=== PATIENT | male | born 1955 | race Caucasian/White ===

== ENCOUNTER 2020-12-01 01:31 | Inpatient (IN) | payer OTHER ==
[~2020-12-01] VITALS: Ht 180.3 cm; Wt 97.0 kg
[2020-12-01 02:08] LABS: BASOPHILS ABSOLUTE AUTO 0.08 K/mm3 (0.00-0.23); BASOPHILS PERCENT AUTO 1 % (0-2); EOSINOPHILS ABSOLUTE AUTO 0.83 K/mm3 (0.00-0.68); EOSINOPHILS PERCENT AUTO 8 % (0-6); Hemoglobin 12.8 g/dL (13.5-17.5); IMMATURE GRAN PERCENT AUTO 1 % (0-1); LYMPHOCYTES ABSOLUTE AUTO 2.17 K/mm3 (0.84-5.20); LYMPHOCYTES PERCENT AUTO 21 % (21-46); MONOCYTES ABSOLUTE AUTO 1.15 K/mm3 (0.16-1.47); MONOCYTES PERCENT AUTO 11 % (4-13); Mean Corpuscular HGB 27.6 pg (26.0-34.0); Mean Corpuscular Volume 86 fL (80-100); Mean Platelet Volume 8.9 fL (9.1-12.4); NEUTROPHILS ABSOLUTE AUTO 5.96 K/mm3 (1.96-9.15); NEUTROPHILS PERCENT AUTO 58 % (41-73); Platelet Count 357 K/mm3 (150-400); RDW Coefficient Variation 13.9 % (11.7-14.2); RDW Standard Deviation 43.9 fL (35.1-46.3); Red Blood Cell Count 4.63 M/mm3 (4.30-5.90); White Blood Cell Count 10.29 K/mm3 (4.00-11.30)
[2020-12-01 02:29] LABS: Alanine Aminotransfer (ALT/SGP 22 U/L (12-78); Albumin/Globulin Ratio 0.7 (0.8-1.8); Alk Phos 127 U/L (50-136); Anion Gap 5 mmol/L (6-16); Aspartate Aminotrans (AST/SGOT 15 U/L (12-37); Bilirubin, Total 0.3 mg/dL (0.1-1.0); Blood Urea Nitrogen 19 mg/dL (8-24); Bun/Creatinine Ratio 19.2 (12.0-20.0); CO2, Blood 29 mmol/L (21-32); Calcium, Blood 8.6 mg/dL (8.5-10.1); Chloride, Blood 108 mmol/L (98-108); Creatinine, Blood 0.99 mg/dL (0.60-1.20); Globulin, Blood 4.6 g/dL (2.2-4.0); Glomerular Filtration Rate >60 (60-); Glucose, Blood 103 mg/dL (70-99); Sodium, Blood 142 mmol/L (136-145); Total Protein, Blood 7.6 g/dL (6.4-8.2); Troponin I <0.015 ng/mL (0.000-0.040)
--- NOTE | 2020-12-01 05:48 | NUR ---
ADMIT / SHIFT SUMMARY PT TO UNIT FROM ED. AXO. ON RA. IN SR. WALKED INTO BED. VSS. C/O R LUNG PAIN BUT FENTANYL HELPING WITH PAIN THAT WAS ADMINISTERED IN ER. PT PLACED ON 2LNC WHILE ASLEEP, SPO2 >94% NOW. ADMISSION COMPLETED EXCEPT MED REC. WILL CONTINUE TO MONITOR UNTIL SHIFT CHANGE.
--- NOTE | 2020-12-01 08:02 | NUR ---
ASSUMED CARE REPORT FROM EAMON MUÑOZ. PT RESTING IN BED. WAKES c VERBAL STIMULI. A&OX 4. ANSWERS QUESTIONS APPROPRIATELY. FOLLOWS COMMANDS. PT C/O RIGHT CHEST WALL PAIN. STATES PAIN 8/10. MEDICATED c TYLENOL. PT TAKES SHALLOW BREATHS D/T PAIN. ON 2L VIA NC, O2 SATS >97% WHEN AWAKE, >90% WHEN SLEEPING. LUNGS CLEAR. PT P/W/D. MAEW. ABLE TO SHIFT AND REPOSITION SELF IN BED. IVF INFUSING AT 100 ML/HR. ABLE TO MAKE NEEDS KNOWN. CALL LIGHT IN REACH. WILL CONTINUE TO MONITOR.
[2020-12-01] MEDS ORDERED: ACET500 PO (08:28)
[2020-12-01] MEDS ORDERED: Aspir 8181 MG PO (08:28)
[2020-12-01] MEDS ORDERED: ATOR40TA PO (08:28)
[2020-12-01] MEDS ORDERED: METO25ER PO (08:29)
[2020-12-01] MEDS ORDERED: TAMS.4ER PO (08:29)
--- NOTE | 2020-12-01 10:19 | NUR ---
REPORT CALLED TO TEJAS MUÑOZ. PT TRANSFERRED TO SURGICAL FLOOR. ALL BELONGINGS c PT.
--- NOTE | 2020-12-01 10:29 | NUR ---
PT ARRIVED TO UNIT FROM ICU AT APROX 1020.
[2020-12-01 11:53] LABS: International Normalized Ratio 0.93
--- NOTE | 2020-12-01 17:56 | NUR ---
SHIFT SUMMARY PT WAS ICU TX THIS SHIFT. UPON ARRIVAL TO UNIT PT WAS PAINFUL, MEDICATED WITH PO AND IVP MEDICATION WITH NO RELIEF. DR BACON IN TO SEE PT, ORDER FOR DILAUDID PARTS ORDER AND STOCK CLERK. PT IS MUCH MORE COMFORTABLE AND REPORTS PAIN 3/10 SINCE INITIATION OF PARTS ORDER AND STOCK CLERK. LUNG SOUNDS DIMINISHED ON R SIDE WITH SOME AUDIBLE WHEEZING, DENIES SOB. O2 SAT DROPPED TO 84% WHILE SLEEPING, O2 VIA NC APPLIED, O2 SAT NOW GREATER THAN 92%. DR JAY IN FOR CONSULT, PLAN TO CONTINUE IV ABX AT THIS TIME AND FOR CT GUIDED LUNG BX.
--- NOTE | 2020-12-02 04:17 | NUR ---
SHIFT SUMMARY: PT A&O X4. PLEASANT AND COOPERATIVE THROUGHOUT SHIFT. PAIN WELL MANAGED WITH DILAUDID LINK AND LINK KNITTING MACHINE OPERATOR. CONTINUOUS RATE REMAINS AT 0.2MG/HR. O2 94-96% ON 3L VIA NC. PT DENIES SOB. PULSE OXIMETER IN PLACE. DRY, NON PRODUCTIVE COUGH NOTED. RLL DIMINISHED, RUL WITH EXPIRATORY STRIDOR. LUNG SOUNDS ON LEFT SIDE CLEAR. ORAL CONTRAST STARTED AT [address] GUIDED BIOPSY THIS MORNING AT 0600.
--- NOTE | 2020-12-02 06:00 | NUR ---
PT TAKEN TO CT SCAN AT THIS TIME
--- NOTE | 2020-12-02 11:06 | NUR ---
PATIENTS OXYGEN SATURATION AT 89 % ON 1.5L VIA NASAL CANULA, TITRATED PATIENTS OXYGEN UP TO 3 LITERS AND SATURATION IS NOW 93%.
--- NOTE | 2020-12-02 18:52 | NUR ---
SHIFT SUMMARY PATIENT ALERT AND ORIENTED X4. PATIENT WENT FOR PROCEDURE TODAY THAT WAS UNSUCCESSFUL DUE TO PATIENT NOT BEING ABLE TO LAY FLAT FOR A LONG ENOUGH PERIOD OF TIME. PATIENT REPORTS PAIN HAS BEEN TOLERABLE THROUGHOUT THE SHIFT WHILE ON THE CLUB STEWARD. PATIENT REPORTS NO NAUSEA AT THIS TIME. PATIENT AMBULATING WITH TO THE RESTROOM. PATIENT PLESANT AND COOPERATIVE. PATIENT RESTING IN BED WATCHING TELEVISION AT THS TIME. PATIENT ON 3L VIA NASAL CANULA STAT READING 95-97%.
--- NOTE | 2020-12-03 00:36 | NUR ---
PT IS AGREEABLE TO STUDENT PARTICIPATION IN CARE
--- NOTE | 2020-12-03 04:07 | NUR ---
SHIFT SUMMARY: PT CALM COOPERATIVE/WITH SHALLOW BREATHING, LUNG SOUNDS DIMINISHED ON THE RIGHT REPORTS PAIN 8/10W WITH EXECERTION POX 90S,VS WNL, ON 3L O2 VIA NC,ABX Q8HR, IV FLUIDS TKO FOR DILAUDID INVESTIGATOR INTERNAL REVENUE, STANDBY ASSIST TO BATHROOM, NO ACUTE RESPIRATORY CHANGES T/O THE NIGHT RESTED INTERMITTENTLY WITHOUT ACUTE DISTRESS
--- NOTE | 2020-12-03 18:22 | NUR ---
SHIFT SUMMARY NO ACUTE CHANGES THIS SHIFT. PT IS AWAITING BIOPSY PERFORMED UNDER ANESTHESIA. UNABLE TO HAVE PROCEDURE UNTIL SUNDAY AT 1300. CONTINUOUS PCU PUMP IN PLACE AND PAIN IS CONTROLLED WELL. PT CURRENTLY ON ROOM AIR. HE HAS BEEN RESTING COMFORTABLY FOR THE MAJORITY OF THE SHIFT, VSS.
--- NOTE | 2020-12-04 08:02 | NUR ---
SHIFT SUMMARY: NO SIGNIFICANT CHANGES THIS SHIFT. PAIN BEING MANAGED WITH DILAUDID HARDSCAPE FOREMAN. O2 STABLE ON 3LO2 VIA NC. PT REPORTS OCC SOB. PT OUT OF BED TO AMBULATE HALLWAY WITH SBA. TOLERATED ACTIVITY WELL ON RA. LUNGS CLEAR AND DIMINISHED THROUGHOUT. NSR PER TELE. VOIDING WELL AND TOLERATING PO. AWAITING LUNG BIOPSY ON SUNDAY UNDER ANESTHESIA.
--- NOTE | 2020-12-04 18:16 | NUR ---
SUMMARY NO ACUTE CHANGES T/O SHIFT. PT SLEPT OFF AND ON T/O DAY. FLAT AFFECT. ADMINISTERED MEDS PER ORDERS. PT TOOK 02 OFF THIS AM AND SATS DROPPED TO 80S, HAD PT PLACED 02 BACK ON AND SATS RETURNED TO 90S. CALL LIGHT IN REACH.
--- NOTE | 2020-12-05 13:48 | NUR ---
AGITATED PT AGITATED,PULLING AT LINES. DIAPHORETIC. STATED HAVING ANXIETY. WHEN ASKED IF TAKES ANYTHING FOR ANXIETY, STATED NO. DENIED ETOH HX. WANTED TO TAKE SHOWER. PROVIDED SHOWERING SUPPLIES. PT IN RESTROOM NOW.
--- NOTE | 2020-12-05 14:45 | NUR ---
PT FEELS BETTER AFTER SHOWER AND APPEARS MORE CALM.
--- NOTE | 2020-12-05 15:58 | NUR ---
PT FEELING ANXIOUS. ASKED FOR ANXIETY MEDS. SITTING IN CHAIR IN ROOM, ROCKING BACK AND FORTH, RESTLESS. SPOKE TO DR FUENTES. AWAITING ORDERS.
--- NOTE | 2020-12-05 16:24 | NUR ---
PT ANXIOUS ABOUT PROGNOSIS. STATED FEAR OF "LOSING A LUNG", ASKING "IS THIS A SENTENCE?". DISCUSSED W/PT TRYING TO TAKE THINGS ONE STEP AT A TIME AND SEE WHAT BX RESULTS ARE TO MAKE A PLAN W/ MEDICATED PT PER ORDERS FOR ANXIETY. PT NOW RESTING IN BED. PT DECLINED OFFER TO SPEAK W/RUBBER MOLD MAKER. CALL LIGHT AND CAPACITY ANALYST IN REACH.
--- NOTE | 2020-12-05 18:13 | NUR ---
SUMMARY PT HAD INCREASED PAIN THIS SHIFT. ORDERS OBTAINED TO INCREASE LOCKOUT TO EVERY 20 MINUTES AND ADD'L DOSE OF 1 MG DILAUDID GIVEN PER ORDERS. PT BECAME VERY ANXIOUS THIS AFTERNOON CONCERNING PROGNOSIS. MEDICATED PER ORDERS W/OT DOSE OF VISTARIL. PT REPORTS STILL EXPERIENCING ANXIETY. DECLINED OFFER TO SPEAK W/CHAPLAINS. DISCUSSED TRYING TO RELAX AND APPROACH UPCOMING DAYS ONE STEP AT A TIME. CALL LIGHT AND GAGGERMAN IN REACH.
--- NOTE | 2020-12-05 18:24 | NUR ---
PT GAVE STUDENT NURSE PERMISSION FOR CARE ON 12/05/20 AT 0700.
--- NOTE | 2020-12-06 00:51 | NUR ---
ANXIETY: PT CONT TO REPORT FEELINGS OF ANXIETY. PT REP ANXIETY REDUCED AFTER PREV DOSE OF VISTARIL. PT AMB IN HALLS, W/THIS RN, SUPPORT AND EDUCATION PROVIDED DURING WALK, PT THANKFUL, RECEPTIVE AND APPEARED MORE CALM AFTER. PT REQ ANTIANXIETY MED; NEW ORDER FOR PRN VISTARIL REC
--- NOTE | 2020-12-06 01:16 | NUR ---
ANXIETY: PT CONT TO C/O INCREASING ANXIETY R/T NEW DX AND UPCOMING BIOPSY. PT RECENTLY MEDICATED W/VISTARIL, PT STATING NO RELIEF. PT AMB IN HALLS W/THIS RN, DISTRACTION AND THER COMMUNICATION PROVIDED, PT MINIMALLY RECEPTIVE. PT ASKING FOR A DIFFERENT MED; STATING "I NEED SOMETHING TO KNOCK ME OUT, I CAN'T TAKE THIS" CALL PLACED TO HOSPITALIST, NEW ORDER REC.
--- NOTE | 2020-12-06 01:43 | NUR ---
ATIVAN GIVEN PER ORDERS. PT REP "STARTING" TO FEEL MORE RELAXED. PT LYING IN BED, W/EYES CLOSED. RESP 12, E/U, SATS 91-93% ON 4LO2 NC. PT AWAKENS TO VERBAL STIMULI. DIAUDID CARDIAC CARE NURSE TURNED OFF. CONT OX ON. WILL CONT TO CLOSELY MONITOR.
--- NOTE | 2020-12-06 07:49 | NUR ---
PT VSS. PT SLEPT FOR 4+ HOURS AFTER ATIVAN GIVEN; AWOKE CONFUSED, PULLED HIS IV. PT REORIENTED, DENIED PAIN/ANXIETY. APPX 0700 THIS AM, PT REPORTED INC ANXIETY AND AGITATION. PT MEDICATED W/VISTARIL W/NO SIG IMPROVEMENT. AM HOSPITALIST UPDATED BY DAY RN, AWAITING NEW ORDERS. PLAN FOR BIOPSY TODAY.
[2020-12-06 09:09] LABS: Anion Gap 2 mmol/L (6-16); Blood Urea Nitrogen 12 mg/dL (8-24); Bun/Creatinine Ratio 17.1 (12.0-20.0); CO2, Blood 31 mmol/L (21-32); Calcium, Blood 8.6 mg/dL (8.5-10.1); Chloride, Blood 105 mmol/L (98-108); Glomerular Filtration Rate >60 (60-); Glucose, Blood 111 mg/dL (70-99); Sodium, Blood 138 mmol/L (136-145)
--- NOTE | 2020-12-06 14:25 | NUR ---
RETURN FROM CT DROWSY, BUT OPENS EYES APPROP. REQUESTING SODA TO DRINK. BANDAID TO R CHEST WALL. LUNGS DIM T/O, R SIDE SLIGHTLY MORE DIM THAN L; NO CHANGE FROM PRIOR. BED ALARM SET DUE TO DROWSINESS.
--- NOTE | 2020-12-06 17:58 | NUR ---
SHIFT SUMMARY THIS AM, PT WAS HAVING A LOT OF ANXIETY R/T PROCEDURE. AFTER 20 MINS OF BACK RUB, BREATHING EXERCISES, & 30 MINS POST VISTARIL ADMINISTATION, CALLED FOR NEW ORDERS. APPROX 40 MINS AFTER PO ATIVAN, PT WAS ABLE TO LAY BACK & REST COMFORTABLY. HAD HIS BIOPSY COMPLETED & FELL ASLEEP AFTER HAVING A MEAL UPON RETURN TO THE ROOM. SIGN BOARD ERECTOR RESUMED & PT DROWSY THIS AFTERNOON.
--- NOTE | 2020-12-07 04:50 | NUR ---
SHIFT SUMMARY: PT A&O X4. LUNGS DIMINISHED THROUGHOUT. O2 95% ON 3L VIA NC. DENIES SOB AT REST. PT RESTING MOST OF SHIFT. REQUESTED TO GO ON WALK THIS MORNING. PT SBA. PT ABLE TO WALK APPROX 200FT. WEAK AND UNSTEADY. PT APPEARED TO BE VERY PAINFUL DURING WALK, OCC GRABBING AT CHEST. ABLE TO WALK WITHOUT NEED FOR OXYGEN. O2 AT 92% ON RA WHEN BACK TO ROOM. DILAUDID MORTICIAN SUPPLIES SALES REPRESENTATIVE INFUSING PER EMAR. AWAITING BIOPSY RESULTS. PT EAGER TO DISCHARGE FROM HOSPITAL AND FREQ ASKING WHEN HE IS ABLE TO GO HOME.
[2020-12-07] MEDS ORDERED: SENNA LAXATIVE8.6 MG PO (12:24)
[2020-12-07] MEDS ORDERED: PROBIOTIC1 EA13 PO (12:24)
[2020-12-07] MEDS ORDERED: PERCOCET 10-321 EAC5 PO (12:24)
[2020-12-07] MEDS ORDERED: AMOCLA875 PO (12:25)
--- NOTE | 2020-12-07 15:00 | NUR ---
HOME OXYGEN PT IS UNABLE TO OBTIAIN HOME O2 UNTIL TOMORROW DUE TO [facility] TIM[facility]. PT WANTS TO LEAVE AMA. RA SATS WITH MINIMAL EXERTION HAVE BEEN > 92%. ONLY WITH 10 MINS OF MODERATE ACTIVITY DID HE DIP BELOW 90%. MD UPDATED ON THIS AND ENCOURAGED PT TO WAIT UNTIL HOME O2 SET UP. PT DISAGREES AND STATES HE WILL JUST MOVE MINIALLY AT HOME AND RETURN TO ER IF SYMPTOMS GET BAD. THE RISK OF THIS WAS EXPLAINED TO PT IN DEPTH. RISK OF UNRECOGNISABLE HYPOXIA, CHANGES IN RESP STATUS, & EVEN . PT STILL WISHES TO DISCHARGE.
--- NOTE | 2020-12-07 15:40 | NUR ---
DISCHARGE ALTHOUGH PT UNDERSTANDS RISK AND CAN REPEAT THEM TO ME, WISHES TO DC HOME. CARE MANAGEMENT HAS BEEN INVOLVED. DC INFO SENT & ESCORTED OUT VIA WC.
[2020-12-31] MEDS ORDERED: DOCU100 PO (05:27)
[2020-12-31] MEDS ORDERED: BENADRYL25 MG PO (05:28)
[2020-12-31] MEDS ORDERED: Ondansetron Odt8 MG MM (05:28)
[2020-12-31] MEDS ORDERED: PAIN RELIEF1 EACH TOP (05:28)
[2020-12-31] MEDS ORDERED: MAGCIT300 PO (06:22)
== END 2020-12-07 15:59 | disposition home health service (06) | DRG 180 ==
LOC: ER 01:31 → ICUW 04:52 → ICUE 04:52 → SURS 04:52 → ICUE 05:00 → SURS 10:21
PROVIDERS: Anesthesiology; Emergency Medicine; Internal Medicine; ADMIT Family Medicine
PROC: 0BBC3ZX Excision of Right Upper Lung Lobe, Percutaneous Approach, Diagnostic (ICD-10-PCS; principal; 2020-12-06)
DX: C34.11 Malignant neoplasm of upper lobe, right bronchus or lung (principal); J96.21 Acute and chronic respiratory failure with hypoxia; J18.9 Pneumonia, unspecified organism; E43 Unspecified severe protein-calorie malnutrition; C78.7 Secondary malignant neoplasm of liver and intrahepatic bile duct; C79.72 Secondary malignant neoplasm of left adrenal gland; C79.71 Secondary malignant neoplasm of right adrenal gland; I25.10 Atherosclerotic heart disease of native coronary artery without angina pectoris; J44.9 Chronic obstructive pulmonary disease, unspecified; E78.5 Hyperlipidemia, unspecified; I10 Essential (primary) hypertension; F41.9 Anxiety disorder, unspecified; I25.2 Old myocardial infarction; F17.290 Nicotine dependence, other tobacco product, uncomplicated; Z79.82 Long term (current) use of aspirin; Z79.899 Other long term (current) drug therapy; Z95.5 Presence of coronary angioplasty implant and graft; Z98.890 Other specified postprocedural states; D64.9 Anemia, unspecified; Z68.30 Body mass index [BMI] 30.0-30.9, adult
CPT/HCPCS: 32408; 36415; 70470; 71045; 71260; 74177; 77012; 80048; 80053; 83605; 84484; 85025; 85610; 85730; 87040; 88305; 88341; 88342; 93005; 93010; 94640; 94761; 94762; 96365-59; 96375-59; 99285-25; A9270; J0696; J1170; J2060; J2250; J2405; J2543; J2704; J3010; J7030; J7040; Q0177; Q9967

== ENCOUNTER 2021-03-04 19:07 | Emergency (ER) | payer OTHER ==
[~2021-03-04] VITALS: Ht 180.3 cm; Wt 93.0 kg
[~2021-03-04 19:07] MED LIST: ACET500 PO; AMOCLA875 PO; ATOR40TA PO; Aspir 8181 MG PO; BENADRYL25 MG PO; DOCU100 PO; MAGCIT300 PO; METO25ER PO; Ondansetron Odt8 MG MM; PAIN RELIEF1 EACH TOP; PERCOCET 10-321 EAC5 PO; PROBIOTIC1 EA13 PO; SENNA LAXATIVE8.6 MG PO; TAMS.4ER PO
[2021-03-04 19:33] LABS: BASOPHILS ABSOLUTE AUTO 0.02 K/mm3 (0.00-0.23); BASOPHILS PERCENT AUTO 0 % (0-2); EOSINOPHILS PERCENT AUTO 1 % (0-6); Hematocrit 30.4 % (37.0-53.0); Hemoglobin 9.7 g/dL (13.5-17.5); IMMATURE GRAN ABSOLUTE AUTO 0.07 K/mm3 (0.00-0.10); IMMATURE GRAN PERCENT AUTO 1 % (0-1); LYMPHOCYTES ABSOLUTE AUTO 2.45 K/mm3 (0.84-5.20); LYMPHOCYTES PERCENT AUTO 29 % (21-46); MONOCYTES ABSOLUTE AUTO 0.72 K/mm3 (0.16-1.47); MONOCYTES PERCENT AUTO 9 % (4-13); Mean Corpuscular HGB Conc 31.9 g/dL (31.5-36.5); Mean Corpuscular Volume 88 fL (80-100); Mean Platelet Volume 9.4 fL (9.1-12.4); NEUTROPHILS ABSOLUTE AUTO 5.08 K/mm3 (1.96-9.15); NEUTROPHILS PERCENT AUTO 60 % (41-73); Platelet Count 290 K/mm3 (150-400); RDW Coefficient Variation 18.9 % (11.7-14.2); RDW Standard Deviation 59.2 fL (35.1-46.3); Red Blood Cell Count 3.46 M/mm3 (4.30-5.90); White Blood Cell Count 8.44 K/mm3 (4.00-11.30)
[2021-03-04 19:50] LABS: Alanine Aminotransfer (ALT/SGP 30 U/L (12-78); Albumin, Blood 3.1 g/dL (3.4-5.0); Albumin/Globulin Ratio 0.8 (0.8-1.8); Alk Phos 118 U/L (50-136); Anion Gap 3 mmol/L (6-16); Aspartate Aminotrans (AST/SGOT 24 U/L (12-37); Bilirubin, Total 0.4 mg/dL (0.1-1.0); Blood Urea Nitrogen 20 mg/dL (8-24); Bun/Creatinine Ratio 19.2 (12.0-20.0); CO2, Blood 31 mmol/L (21-32); Calcium, Blood 8.4 mg/dL (8.5-10.1); Chloride, Blood 106 mmol/L (98-108); Creatinine, Blood 1.04 mg/dL (0.60-1.20); Globulin, Blood 3.9 g/dL (2.2-4.0); Glomerular Filtration Rate >60 (60-); Glucose, Blood 94 mg/dL (70-99); Potassium, Blood 3.6 mmol/L (3.5-5.5); Sodium, Blood 140 mmol/L (136-145); Troponin I <0.015 ng/mL (0.000-0.040)
== END 2021-03-04 23:34 | disposition home or self-care (01) ==
LOC: ER 19:07
PROVIDERS: Emergency Medicine
DX: R07.89 Other chest pain (principal); I25.2 Old myocardial infarction; F17.290 Nicotine dependence, other tobacco product, uncomplicated; Z79.899 Other long term (current) drug therapy; Z79.82 Long term (current) use of aspirin
CPT/HCPCS: 71045; 80053; 83880; 84484; 85025; 93005; 93010; 99285-25

== ENCOUNTER 2021-06-07 12:36 | Emergency (ER) | payer OTHER ==
[~2021-06-07] VITALS: Ht 180.3 cm; Wt 95.7 kg
[2021-06-07 13:35] LABS: Hematocrit 40.1 % (37.0-53.0); Hemoglobin 12.5 g/dL (13.5-17.5); Mean Corpuscular HGB 28.7 pg (26.0-34.0); Mean Corpuscular HGB Conc 31.2 g/dL (31.5-36.5); Mean Corpuscular Volume 92 fL (80-100); Mean Platelet Volume 9.4 fL (9.1-12.4); Platelet Count 215 K/mm3 (150-400); RDW Standard Deviation 57.6 fL (35.1-46.3); Red Blood Cell Count 4.36 M/mm3 (4.30-5.90); White Blood Cell Count 13.32 K/mm3 (4.00-11.30)
[2021-06-07 13:50] LABS: Alanine Aminotransfer (ALT/SGP 61 U/L (12-78); Albumin, Blood 2.4 g/dL (3.4-5.0); Albumin/Globulin Ratio 0.6 (0.8-1.8); Alk Phos 84 U/L (50-136); Anion Gap 5 mmol/L (6-16); Aspartate Aminotrans (AST/SGOT 25 U/L (12-37); Bilirubin, Total 0.4 mg/dL (0.1-1.0); Blood Urea Nitrogen 20 mg/dL (8-24); Bun/Creatinine Ratio 18.5 (12.0-20.0); CO2, Blood 32 mmol/L (21-32); Calcium, Blood 8.5 mg/dL (8.5-10.1); Chloride, Blood 101 mmol/L (98-108); Creatinine, Blood 1.08 mg/dL (0.60-1.20); Globulin, Blood 3.9 g/dL (2.2-4.0); Glomerular Filtration Rate >60 (60-); Glucose, Blood 115 mg/dL (70-99); Potassium, Blood 3.8 mmol/L (3.5-5.5); Sodium, Blood 138 mmol/L (136-145); Total Protein, Blood 6.3 g/dL (6.4-8.2)
[2021-06-07 14:25] LABS: BAND PERCENT MAN 4 % (0-8); BASOPHILS PERCENT MAN 0 % (0-2); EOSINOPHILS PERCENT MAN 0 % (0-6); LYMPHOCYTES ABSOLUTE MAN 1.73 K/mm3 (0.84-5.20); LYMPHOCYTES PERCENT MAN 13 % (21-46); METAMYELOCYTE ABSOLUTE MAN 0.66 K/mm3 (0.00-0.00); METAMYELOCYTE PERCENT MAN 5 % (0-0); MONOCYTES ABSOLUTE MAN 0.26 K/mm3 (0.16-1.47); MONOCYTES PERCENT MAN 2 % (4-13); MYELOCYTE ABSOLUTE MAN 0.66 K/mm3 (0.00-0.00); MYELOCYTE PERCENT MAN 5 % (0-0); NEUTROPHILS ABSOLUTE MAN 9.99 K/mm3 (1.96-9.15); SEG NEUTROPHILS PERCENT MAN 71 % (41-73); TOTAL CELLS COUNTED 100
== END 2021-06-07 17:04 | disposition left against medical advice (07) ==
LOC: ER 12:36
PROVIDERS: Physician Assistant
DX: R53.1 Weakness (principal); Z53.21 Procedure and treatment not carried out due to patient leaving prior to being seen by health care provider
CPT/HCPCS: 36415; 70450; 71045; 80053; 85025; 93005; 93010; 99284-25

== ENCOUNTER 2021-10-21 14:32 | Emergency (ER) | payer OTHER ==
[~2021-10-21] VITALS: Ht 182.9 cm; Wt 90.7 kg
[2021-10-21 15:41] LABS: BASOPHILS ABSOLUTE AUTO 0.09 K/mm3 (0.00-0.23); BASOPHILS PERCENT AUTO 1 % (0-2); EOSINOPHILS ABSOLUTE AUTO 0.27 K/mm3 (0.00-0.68); EOSINOPHILS PERCENT AUTO 2 % (0-6); Hematocrit 49.2 % (37.0-53.0); Hemoglobin 15.3 g/dL (13.5-17.5); IMMATURE GRAN PERCENT AUTO 3 % (0-1); LYMPHOCYTES ABSOLUTE AUTO 2.11 K/mm3 (0.84-5.20); LYMPHOCYTES PERCENT AUTO 17 % (21-46); MONOCYTES ABSOLUTE AUTO 1.35 K/mm3 (0.16-1.47); MONOCYTES PERCENT AUTO 11 % (4-13); Mean Corpuscular HGB 26.5 pg (26.0-34.0); Mean Corpuscular HGB Conc 31.1 g/dL (31.5-36.5); Mean Corpuscular Volume 85 fL (80-100); NEUTROPHILS ABSOLUTE AUTO 8.03 K/mm3 (1.96-9.15); NEUTROPHILS PERCENT AUTO 66 % (41-73); Platelet Count 289 K/mm3 (150-400); RDW Coefficient Variation 14.9 % (11.7-14.2); RDW Standard Deviation 46.5 fL (35.1-46.3); Red Blood Cell Count 5.77 M/mm3 (4.30-5.90); White Blood Cell Count 12.25 K/mm3 (4.00-11.30)
[2021-10-21 15:59] LABS: Alanine Aminotransfer (ALT/SGP 72 U/L (12-78); Albumin, Blood 3.3 g/dL (3.4-5.0); Albumin/Globulin Ratio 0.8 (0.8-1.8); Alk Phos 112 U/L (50-136); Anion Gap 7 mmol/L (6-16); Aspartate Aminotrans (AST/SGOT 32 U/L (12-37); Bilirubin, Total 0.9 mg/dL (0.1-1.0); Blood Urea Nitrogen 13 mg/dL (8-24); CO2, Blood 29 mmol/L (21-32); Calcium, Blood 9.3 mg/dL (8.5-10.1); Chloride, Blood 100 mmol/L (98-108); Creatinine, Blood 0.93 mg/dL (0.60-1.20); Globulin, Blood 4.2 g/dL (2.2-4.0); Glomerular Filtration Rate >60 (60-); Glucose, Blood 121 mg/dL (70-99); Potassium, Blood 4.2 mmol/L (3.5-5.5); Sodium, Blood 136 mmol/L (136-145); Total Protein, Blood 7.5 g/dL (6.4-8.2)
[2021-10-21 18:14] LABS: Influenza A, PCR NEGATIVE (NEGATIVE); Influenza B, PCR NEGATIVE (NEGATIVE); Resp Syncytial Virus, PCR NEGATIVE (NEGATIVE); SARS-Cov-2 (COVID-19) PCR, MMC NEGATIVE (NEGATIVE)
[2021-10-21] MEDS ORDERED: Dexamethasone4 MG PO (18:23)
[2021-10-21] MEDS ORDERED: ONDA4ODT MM (18:23)
== END 2021-10-21 19:20 | disposition home or self-care (01) ==
LOC: ER 14:32
PROVIDERS: Physician Assistant
DX: C79.31 Secondary malignant neoplasm of brain (principal); C34.90 Malignant neoplasm of unspecified part of unspecified bronchus or lung; I25.2 Old myocardial infarction; I10 Essential (primary) hypertension; I25.10 Atherosclerotic heart disease of native coronary artery without angina pectoris; F17.290 Nicotine dependence, other tobacco product, uncomplicated; Z79.82 Long term (current) use of aspirin; Z79.899 Other long term (current) drug therapy
CPT/HCPCS: 0241U; 36415; 70450; 74176; 80053; 83690; 85025; 96374; 96375; 99284-25; A9270; J1100; J2765; J7120

== ENCOUNTER 2021-12-18 14:49 | Emergency (ER) | payer OTHER ==
[~2021-12-18] VITALS: Ht 180.3 cm; Wt 99.8 kg
[~2021-12-18 14:49] MED LIST changes: +ALBU90OI INH; +CITRATE OF MAG296 M4 PO; +DOCUZEN 8.6-501 EACH PO; +Dexamethasone4 MG PO; +Diflucan100 MG PO; +FENTANYL1 EAC7 TD; +FURO40; +MIRALAX17 GM PO; +OMEP20ER; +ONDA4ODT MM; +POTCHL20ER
[2021-12-18 15:33] LABS: Hematocrit 44.6 % (37.0-53.0); Hemoglobin 14.4 g/dL (13.5-17.5); Mean Corpuscular HGB 26.9 pg (26.0-34.0); Mean Corpuscular HGB Conc 32.3 g/dL (31.5-36.5); Mean Corpuscular Volume 83 fL (80-100); NRBC ABSOLUTE 0.03 K/mm3 (0.00-0.02); NRBC Auto 0.2 /100 WBC (0.0-0.2); Platelet Count 339 K/mm3 (150-400); RDW Coefficient Variation 19.1 % (11.7-14.2); RDW Standard Deviation 55.9 fL (35.1-46.3); Red Blood Cell Count 5.36 M/mm3 (4.30-5.90); White Blood Cell Count 13.93 K/mm3 (4.00-11.30)
[2021-12-18 15:52] LABS: Alanine Aminotransfer (ALT/SGP 89 U/L (12-78); Albumin, Blood 3.3 g/dL (3.4-5.0); Albumin/Globulin Ratio 0.8 (0.8-1.8); Alk Phos 149 U/L (50-136); Anion Gap 4 mmol/L (6-16); Aspartate Aminotrans (AST/SGOT 39 U/L (12-37); BAND PERCENT MAN 4 % (0-8); BASOPHILS PERCENT MAN 0 % (0-2); Bilirubin, Total 0.6 mg/dL (0.1-1.0); Blood Urea Nitrogen 27 mg/dL (8-24); Bun/Creatinine Ratio 23.9 (12.0-20.0); CO2, Blood 34 mmol/L (21-32); Calcium, Blood 9.7 mg/dL (8.5-10.1); Chloride, Blood 98 mmol/L (98-108); Creatinine, Blood 1.13 mg/dL (0.60-1.20); EOSINOPHILS ABSOLUTE MAN 0.13 K/mm3 (0.00-0.68); EOSINOPHILS PERCENT MAN 1 % (0-6); Globulin, Blood 4.3 g/dL (2.2-4.0); Glomerular Filtration Rate >60 (60-); Glucose, Blood 109 mg/dL (70-99); LYMPHOCYTES % ATYPICAL MANUAL 1 % (0-0); LYMPHOCYTES ABSOLUTE MAN 2.08 K/mm3 (0.84-5.20); LYMPHOCYTES PERCENT MAN 14 % (21-46); METAMYELOCYTE ABSOLUTE MAN 0.69 K/mm3 (0.00-0.00); METAMYELOCYTE PERCENT MAN 5 % (0-0); MONOCYTES ABSOLUTE MAN 1.39 K/mm3 (0.16-1.47); MONOCYTES PERCENT MAN 10 % (4-13); MYELOCYTE ABSOLUTE MAN 0.41 K/mm3 (0.00-0.00); MYELOCYTE PERCENT MAN 3 % (0-0); NEUTROPHILS ABSOLUTE MAN 9.05 K/mm3 (1.96-9.15); PROMYELOCYTE ABSOLUTE MAN 0.13 K/mm3 (0.00-0.00); PROMYELOCYTE PERCENT MAN 1 % (0-0); Potassium, Blood 3.8 mmol/L (3.5-5.5); SEG NEUTROPHILS PERCENT MAN 61 % (41-73); Sodium, Blood 136 mmol/L (136-145); TOTAL CELLS COUNTED 100; Total Protein, Blood 7.6 g/dL (6.4-8.2)
== END 2021-12-18 19:24 | disposition home or self-care (01) ==
LOC: ER 14:49
PROVIDERS: Physician Assistant
DX: K59.09 Other constipation (principal); J44.9 Chronic obstructive pulmonary disease, unspecified; G89.29 Other chronic pain; C34.90 Malignant neoplasm of unspecified part of unspecified bronchus or lung; C79.31 Secondary malignant neoplasm of brain; Z79.899 Other long term (current) drug therapy; Z79.891 Long term (current) use of opiate analgesic; Z79.82 Long term (current) use of aspirin; I10 Essential (primary) hypertension; I25.2 Old myocardial infarction; E78.5 Hyperlipidemia, unspecified; I25.10 Atherosclerotic heart disease of native coronary artery without angina pectoris; F17.290 Nicotine dependence, other tobacco product, uncomplicated
CPT/HCPCS: 80053; 83690; 85025; 96374; 96375; 99283-25; A9270; J1170; J2405; J7030

== ENCOUNTER 2021-12-22 05:16 | Emergency (ER) | payer OTHER ==
[~2021-12-22] VITALS: Ht 180.3 cm; Wt 99.8 kg
[~2021-12-22 05:16] MED LIST changes: -FURO40; +FURO40 PO
[2021-12-22] MEDS ORDERED: OXYC5 PO ×2 (06:53→06:54)
[2021-12-22 08:46] LABS: Hematocrit 42.3 % (37.0-53.0); Hemoglobin 13.2 g/dL (13.5-17.5); Mean Corpuscular HGB 26.8 pg (26.0-34.0); Mean Corpuscular HGB Conc 31.2 g/dL (31.5-36.5); Mean Corpuscular Volume 86 fL (80-100); Mean Platelet Volume 9.9 fL (9.1-12.4); NRBC ABSOLUTE 0.02 K/mm3 (0.00-0.02); NRBC Auto 0.1 /100 WBC (0.0-0.2); Platelet Count 298 K/mm3 (150-400); RDW Coefficient Variation 18.5 % (11.7-14.2); RDW Standard Deviation 57.4 fL (35.1-46.3); Red Blood Cell Count 4.93 M/mm3 (4.30-5.90); White Blood Cell Count 15.62 K/mm3 (4.00-11.30)
[2021-12-22 08:57] LABS: Anion Gap 7 mmol/L (6-16); Blood Urea Nitrogen 25 mg/dL (8-24); Bun/Creatinine Ratio 22.5 (12.0-20.0); CO2, Blood 36 mmol/L (21-32); Chloride, Blood 94 mmol/L (98-108); Creatinine, Blood 1.11 mg/dL (0.60-1.20); Glomerular Filtration Rate >60 (60-); Glucose, Blood 141 mg/dL (70-99); Potassium, Blood 3.5 mmol/L (3.5-5.5); Sodium, Blood 137 mmol/L (136-145)
[2021-12-22 09:07] LABS: BAND PERCENT MAN 4 % (0-8); BASOPHILS PERCENT MAN 0 % (0-2); EOSINOPHILS PERCENT MAN 0 % (0-6); LYMPHOCYTES ABSOLUTE MAN 1.71 K/mm3 (0.84-5.20); LYMPHOCYTES PERCENT MAN 11 % (21-46); MONOCYTES ABSOLUTE MAN 1.71 K/mm3 (0.16-1.47); MONOCYTES PERCENT MAN 11 % (4-13); NEUTROPHILS ABSOLUTE MAN 12.18 K/mm3 (1.96-9.15); SEG NEUTROPHILS PERCENT MAN 74 % (41-73); TOTAL CELLS COUNTED 100
[2021-12-23] MEDS ORDERED: OMEP20ER PO (16:54)
[2021-12-23] MEDS ORDERED: MELATONIN3 M1 PO (16:55)
[2021-12-23] MEDS ORDERED: LIDO700A20 TOP (16:56)
[2021-12-23] MEDS ORDERED: PROAIR DIGIHAL90 MCG INH (17:00)
== END 2021-12-22 10:12 | disposition home or self-care (01) ==
LOC: ER 05:16
PROVIDERS: Student in an Organized Health Care Education/Training Program
DX: S09.90XA Unspecified injury of head, initial encounter (principal); S32.019A Unspecified fracture of first lumbar vertebra, initial encounter for closed fracture; S32.029A Unspecified fracture of second lumbar vertebra, initial encounter for closed fracture; G89.29 Other chronic pain; C34.90 Malignant neoplasm of unspecified part of unspecified bronchus or lung; C79.31 Secondary malignant neoplasm of brain; W18.30XA Fall on same level, unspecified, initial encounter; Z79.899 Other long term (current) drug therapy; Z79.891 Long term (current) use of opiate analgesic; Z79.82 Long term (current) use of aspirin; I25.2 Old myocardial infarction; I10 Essential (primary) hypertension; E78.00 Pure hypercholesterolemia, unspecified; F17.290 Nicotine dependence, other tobacco product, uncomplicated
CPT/HCPCS: 70450; 71045; 72125; 72131; 80048; 85025; 96374; 96375; 96376; 99284-25; A9270; J1170; J1885

== ENCOUNTER 2021-12-23 05:08 | Inpatient (IN) | payer OTHER ==
[~2021-12-23] VITALS: Ht 180.3 cm; Wt 89.4 kg
[~2021-12-23 05:08] MED LIST changes: +OXYC5 PO
--- NOTE | 2021-12-23 08:52 | NUR ---
ED Palliative Care Consult Spoke with Dr Trotter and discussed case. 66 year old male to the ED for Acute on Chronic unmanaged pain and multiple falls over the last couple of days. Pt has compression Fxs and denied need for admission to the hospital yesterday when coming in. When awake Pt is yelling and moaning in pain. Pt received consideral opiod medications and was causing somnolance. Discussed potential medications for pain management including considering dexamethaxone. Pt resting on gurney with his eyes closed. Pt does not wake to moderate level of verbal stimuli. Pt appears comfortable at this time with no S/S of distress at this time. Spoke with ED RN Jaylyn and discussed case. Jaylyn will call Palliative Care when Pt is awake.
--- NOTE | 2021-12-23 11:41 | NUR ---
F/U visit this afternoon. Pt more awake but still appears somnolant. Pt is A&OX2, unable to give name of hospital or name of town he is in. Attempted to engage in therapeutic conversation but Pt responds in brief 1-2 word answers, appears to struggle with focusing on conversation, and struggling with keeping his eyes open. Pt does report if appropriate is agreeable to be admitted to the hospital for pain management. Pt appears to elude to questions regarding NOK. When asked about children Pt responds "none that lived". Pt denies sibling and aunts and uncles. Spoke with Dr Trotter and discussed case. Spoke with ED Manager Reliability Dominick and discussed case. Spoke with ED RN Jaylyn and discussed case. Palliative Care will remain available.
--- NOTE | 2021-12-23 15:00 | NUR ---
ADMISSION NOTE: Pt arrived to room [id number] from ER. VSS. States that he is having 10/10 back pain and is moaning. Will medicate per orders for pain. LS clear. HR reg. BT hyperactive. Pt states that his last BM was yesterday. Pulses palp. Denies numbness or tingling. Pt oriented to room and unit. Denies questions. Stable at time of admission. WIll continue to monitor.
[2021-12-23] MEDS ORDERED: OMEP20ER PO (16:54)
[2021-12-23] MEDS ORDERED: MELATONIN3 M1 PO (16:55)
[2021-12-23] MEDS ORDERED: LIDO700A20 TOP (16:56)
[2021-12-23] MEDS ORDERED: PROAIR DIGIHAL90 MCG INH (17:00)
--- NOTE | 2021-12-23 17:49 | NUR ---
Shift Summary: Pt still groaning in room, states that his pain is still 10/10. Physician was notified and orders obtained. Pt has heat pad to back and states that this is helping slightly. No other changes this shift. Will report to night RN.
--- NOTE | 2021-12-23 22:20 | NUR ---
CALL TO DR. AIDE YEH. 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 PT COMPLAINING OF 10/10 PAIN TO LOW BACK. NO PRN ANALGESICS AVAILABLE TO ADMINISTER AT THIS TIME. NEW ORDERS RECEIVED.
[2021-12-24 04:27] LABS: Hematocrit 42.1 % (37.0-53.0); Hemoglobin 13.2 g/dL (13.5-17.5); Mean Corpuscular HGB 26.7 pg (26.0-34.0); Mean Corpuscular HGB Conc 31.4 g/dL (31.5-36.5); Mean Corpuscular Volume 85 fL (80-100); Platelet Count 270 K/mm3 (150-400); RDW Coefficient Variation 18.3 % (11.7-14.2); RDW Standard Deviation 56.6 fL (35.1-46.3); Red Blood Cell Count 4.94 M/mm3 (4.30-5.90); White Blood Cell Count 10.48 K/mm3 (4.00-11.30)
[2021-12-24 05:02] LABS: Alanine Aminotransfer (ALT/SGP 93 U/L (12-78); Albumin, Blood 3.1 g/dL (3.4-5.0); Albumin/Globulin Ratio 0.8 (0.8-1.8); Alk Phos 130 U/L (50-136); Anion Gap 4 mmol/L (6-16); Aspartate Aminotrans (AST/SGOT 51 U/L (12-37); Bilirubin, Total 0.7 mg/dL (0.1-1.0); Blood Urea Nitrogen 12 mg/dL (8-24); Bun/Creatinine Ratio 12.3 (12.0-20.0); CO2, Blood 36 mmol/L (21-32); Calcium, Blood 9.5 mg/dL (8.5-10.1); Chloride, Blood 95 mmol/L (98-108); Creatinine, Blood 0.98 mg/dL (0.60-1.20); Globulin, Blood 3.8 g/dL (2.2-4.0); Glomerular Filtration Rate >60 (60-); Glucose, Blood 128 mg/dL (70-99); Potassium, Blood 3.9 mmol/L (3.5-5.5); Sodium, Blood 135 mmol/L (136-145); Total Protein, Blood 6.9 g/dL (6.4-8.2)
[2021-12-24 05:37] LABS: BAND PERCENT MAN 7 % (0-8); BASOPHILS PERCENT MAN 0 % (0-2); EOSINOPHILS PERCENT MAN 0 % (0-6); LYMPHOCYTES ABSOLUTE MAN 1.88 K/mm3 (0.84-5.20); LYMPHOCYTES PERCENT MAN 18 % (21-46); MONOCYTES ABSOLUTE MAN 1.04 K/mm3 (0.16-1.47); MONOCYTES PERCENT MAN 10 % (4-13); MYELOCYTE ABSOLUTE MAN 0.31 K/mm3 (0.00-0.00); MYELOCYTE PERCENT MAN 3 % (0-0); NEUTROPHILS ABSOLUTE MAN 7.23 K/mm3 (1.96-9.15); SEG NEUTROPHILS PERCENT MAN 62 % (41-73); TOTAL CELLS COUNTED 100
--- NOTE | 2021-12-24 06:30 | NUR ---
PT CONTINUES TO COMPLAIN OF PAIN 8-10/10 TO HIS LOWER BACK. MEDICATIONS ADMINISTERED ORDERED, RESULTING IN ADMINISTRATION OF MEDICATION Q 2 HOURS WITH MINIMAL RELIEF FOR SHORT PERIODS OF TIME. SUPPLEMENTAL OXYGEN APPLIED AT THE BEGINNING OF SHIFT DUE TO SpO2 IN THE MID TO HIGH 80 PERCENTILE RANGE. 2 LPM PER NASAL CANNULA AND CONTINOUS SpO2 MONITORING INITITATED ORDERED. 0.5-1 MG IV DILAUDID Q 2 HOURS ADDED AND MORPHINE DISCONTINUED DURING THIS SHIFT. PT DOES ENDORSE MORE RELIEF WITH DILAUDID THAN WITH MORPHINE, BUT PAIN REMAINS SIGNIFICANT. PER RN SHIFT CHANGE REPORT LAST EVENING, CONSIDERATION MAY BE GIVEN TO INITIATION OF A COMMUNICATIONS INTERN PUMP FOR BETTER PAIN MANAGEMENT TODAY. WILL CONTINUE TO ASSIST PATIENT IN PAIN MANAGEMENT WITH CURRENT ORDERS AND WILL MONITOR PATIENT'S VITAL SIGNS FOR SAFE ADMINISTRATION.
--- NOTE | 2021-12-24 11:05 | NUR ---
AM NOTE: PATIENT ALERT AND ORIENTED X4. PERRLA. NUMBNESS/TINGLING TO LOWER LEGS. IN SEVERE BACK PAIN MOANING. SITTING ON EDGE OF BED. PATIENT ABLE TO TURN SELF IN BED. ON 3-5L NASAL CANNULA SATING LOW 90'S. PATIENT REPORTS HE NORMALLY WEARS 4L NC AT HOME. CONTINUOUS PULSE OX. DENIES COUGH. TELE SHOWING SINUS TACH WITH HR 100-110'S. DENIES CHEST PAIN/PRESSURE. VITAL SIGNS STABLE. NO TEMP. DENIES ABDOMINAL PAIN/NAUSEA. EATING SMALL AMOUNTS. DRINKING WATER, TAKING PILLS WHOLE. SKIN OVERALL C/D/I. SEVERE BACK PAIN UNRELIEVED BY ANY MEDS GIVEN THIS AM. DR. FUENTES AND DR. MENG IN TO SEE PATIENT, NEW ORDERS FOR DILAUDID STAT AND PRN. PATIENT ABLE TO REST SMALL AMOUNTS AFTER 3MG OF DILAUDID WAS GIVEN. LAYING ON RIGHT SIDE WITH HEATING PAD OVER BACK. VITAL SIGNS REMAIN STABLE POST DILAUDID, MONITORING CLOSELY. BED ALARM IN PLACE FOR SAFETY. WILL CONTINUE TO MONITOR.
--- NOTE | 2021-12-24 13:35 | NUR ---
PATIENT BECAME VERY AGGITATED AT STAFF WHEN ASSISTING TO BEDSIDE COMMODE. NOT WANTING HELP. THIS RN STAYED IN ROOM WITH PATIENT HE WAS ON BEDSIDE COMMODE. HR INCREASED TO 130'S WHILE HAVING BOWEL MOVEMENT. PAIN STATUS 8/10, PRN DILAUDID GIVEN. BP REMAINS STABLE FOR PAIN MEDS. PATIENT RESTING IN BED AT THIS TIME. RESPIRATORY STATUS WNL, 15-16 RR, AND 5L NASAL CANNULA SATING LOW 90'S. THIS RN OBSERVING PATIENT SLEEP, NOTED TO HAVE INTERMITTENT BRIEF APNIC MOMENTS.
--- NOTE | 2021-12-24 17:53 | NUR ---
SHIFT SUMMARY: PATIENT CONTINUES MOAN AND BE IN PAIN THROUGHOUT SHIFT. SEE PREVIOUS NOTES. ABLE TO CONTROL PAIN SLIGHTLY, PAIN LEVEL BROUGHT DOWN FROM 10/10 TO 8/10. STAGGERING PAIN MEDS PER EMAR. PAIN BEST CONTROLLED WITH IV DILAUDID. FENTANYL PATCH AND LIDOCAINE PATCH IN PLACE. TELE REMAINS SINUS TACH. DENIES CHEST PAIN. REMAINS ON 5L NASAL CANNULA SATING LOW-MID 90'S. DENIES ABDOMIAL PAIN/NAUSEA. EATING DINNER AT THIS TIME. NEEDS ASSISTANCE WITH URINAL. 2 PERSON ASSIST [place] [facility] [place]. BED ALARM REMAINS IN PLACE. PRN MIRALAX GIVEN FOR CONSTIPATION. THIS RN ASKING PATIENT ABOUT PAIN AND ASSOCIATED SYMPTOMS, PATIENT VERY IRRITABLE AND AGGITATED WITH QUESTIONS. REPEATEDLY ASKED THIS RN TO LEAVE PATIENT ALONE THROUGHOUT SHIFT AND AT TIMES WOULD NOT ANSWER QUESTIONS. MONITORED VITALS, RESPIRATORY, AND PAIN STATUS CLOSELY THROUGHOUT SHIFT. CALL LIGHT IN REACH. WILL CONTINUE TO MONITOR AND REPORT OFF TO ONCOMING RN.
--- NOTE | 2021-12-25 06:02 | NUR ---
PT CONTINUES TO REPORT PAIN TO HIS LOWER BACK, RATING IT CONSISTENTLY 8-10/10. SCHEDULED AND PRN PO AND IV ANALGESICS ADMINISTERED ORDERED WITH LITTLE TO NO IMPROVEMENT FROM PREVIOUS EMBALMER/FUNERAL DIRECTOR. PT IS RESTLESS AND BECOMES EASILY AGITATED WITH STAFF WHEN ASKED QUESTIONS REGARDING HIS PAIN AND/OR WHEN THIS RN ADDRESSES PATIENT SAFETY ISSUES AND THE NEED FOR STAFF ASSISTANCE WITH ANY TRANSFERS TO/FROM BEDSIDE COMMODE AND BED. PT INSISTS HE DOESN'T NEED ASSISTANCE BUT IS BARELY ABLE TO TAKE A COUPLE OF STEPS BEFORE NEEDING TO SIT DOWN DUE TO THE PAIN. PT WAS UP TO THE BEDSIDE COMMODE 4 TIMES DURING THE NIGHT, STATING HE NEEDED TO URINATE BUT SUCCESSFUL WITH JUST 2 OF THE 4 ATTEMPTS. I PERFORMED A BLADDER SCAN AND 03:50 AND IT REVEALED 1244 ML OF RETAINED URINE. PT WAS UNABLE TO VOID ON HIS OWN AND A 16 [place] OVIEDO CATHETER WAS PLACED WITHOUT DIFFICULTY DURING THE INSERTION PROCESS. EDUCATION REGARDING THE NEED FOR PLACEMENT OF THE URINARY CATHETER WAS PROVIDED TO MR. MILLER AND HE ACKNOWLEDGED THE REASONING FOR AND THEN CONSENTED TO ITS PLACEMENT. A TOTAL OF 1500 ML WAS COLLECTED IMMEDIATELY FOLLOWING PLACEMENT OF THE CATHETER. THE CATHETER REMAINS IN PLACE AND MR. MILLER REQUIRES FREQUENT REMINDERS OF ITS PURPOSE AND THAT HE DOES NOT NEED TO GET UP TO THE BEDSIDE COMMODE TO URINATE. THROUGHOUT THE SHIFT, MR. MILLER WOULD SLEEP FOR SHORT PERIODS OF TIME FOLLOWING MEDICATION ADMINISTRATION BEFORE REQUESTING ADDITIONAL PAIN MEDICATION. THESE PEIODS WERE SOMETIMES SHORT 20 - 45 MINUTES. HE DENIED NUMBNESS AND TINGLING TO HIS LOWER EXTREMITIES WITH MY INITITAL ASSESSMENT OF THE NIGHT, STATING THAT IT COMES AND GOES, BUT DID ENDORSE NUMBNESS AND SHOOTING PAIN DOWN HIS LEFT LEG THE NIGHT WENT ON. PERSISTENT SINUS TACHYCARDIA 100S -110S. SYSTOLIC & DIASTOLIC HYPERTENSION. DIFFICULT TO GET THE PATIENT TO RELAX WHEN TAKING A BLOOD PRESSURE HE TENSES UP AND OFTEN YELLS OUT THE CUFF GETS TIGHTER NO MATTER THE ARM OR PLACEMENT OF THE CUFF. SpO2 REMAINS GREATER THAN 90% ON BASELINE OF 4 LPM NASAL CANNULA. RESPIRATIONS 16-24 PER MINUTE.
--- NOTE | 2021-12-25 09:19 | NUR ---
AM NOTE/TRANSFER: PATIENT ALERT AND ORIENTED X3. MOANING AND HARD TO UNDERSTAND. VERY AGGITATED WITH STAFF ASKING "WHAT IS WRONG WITH YOU" AND REFUSING TO ANSWER MOST QUESTIONS THIS AM. ABLE TO MOVE ALL EXTREMITIES. VERY WEAK. COMPLAINS OF NUMBNESS AND TINLING IN LEGS, WORSE IN RIGHT. 2 PERSON ASSIST TO STAND AND PIVOT TO [facility] [place] WITH WALKER. ON 4 L NASAL CANNULA SATING LOW-MID 90'S. DENIES COUGH. TELE SHOWING SINUS TACH WITH HR 100-110'S. BP ELEVATED, ALTHOUGH PATIENT TENSES UP WHEN TAKING. COMPLAINS OF BACK SEVERE BACK PAIN. MEDICATED THIS AM PER EMAR AND PRN DILAUDID. ABLE TO EAT BREAKFAST SITTING ON EDGE OF BED. OVIEDO CATH IN PLACE DRAINING CLEAR/YELLOW URINE. DR. COBB IN TO SEE PATIENT. PATIENT TRANSFERRED UP TO ROOM 343, REPORT GIVEN TO WANDA MISTRY. PATIENT BROUGHT UP TO MEDICAL WITH ALL PERSONAL BELONGINGS.
--- NOTE | 2021-12-25 09:29 | NUR ---
Pt resting in bed upon arrival. Pt is A&OX1/2. Pt reporting 10/10 pain. When discussing wishes for CPR Pt reports that he does not want to be brought back to life and does not want CPR or intubation. With this being said, Pt appears to struggle with understanding and may not be appropriate to make decisions. Spoke with Dr Schmidt and Primary RN Isadora. Discussed case and concerns. Pt becomes significantly agitated during discussion with care team. Placed order for Seroquel 25mg PO Q 4 hrs PRN for agitation and ST cognitive evaluation per V/O from Dr Schmidt. Palliative Care will remain available.
--- NOTE | 2021-12-25 10:30 | NUR ---
Pt remains confused and significantly agitated stating "I need a knife to cut this off", "I need to use it as a measuring tape" referring to his Mixon Catheter. Pt sitting on edge of bed refusing his medications. Pt appearing to become a danger to himself attempting to pull his Mixon out. Assisted with care team with providing Zyprexa. Placed Ethics Consult per V/O from Dr Ferrer due to no NOK and Pt lacking ability for decision making. Palliative Care will remain available.
--- NOTE | 2021-12-25 10:39 | NUR ---
PATIENT ARRIVED ON THE MEDICAL FLOOR AGITATED AND YELLING OUT IN PAIN. THE PATIENT WAS GIVEN ORAL AND IV PAIN MEDICATION. THEY REFUSED TO TAKE SEROQUEL. THEY STARTED TO SHOUT AT STAFF. THE PATIENT WAS REQUESTING A TAPE MEASURE AND SCISSORS TO CUT THEIR OVIEDO TUBING. THEY WERE VERBALLY AGRESSIVE. DIRECTOR OF COMPLIANCE JENNIFER GAVE PATIENT IM ZYPREXA. IT HAS HELPED THE PATIENT CALM DOWN QUITE A BIT. PATIENT IS SITTING IN BED AND HAS BEEN OCCASIONALLY YELLING OUT. BED ALARM ON.
--- NOTE | 2021-12-25 13:06 | NUR ---
Faxed [facility] medical records with request for advanced directive on Pt. Called and spoke with [facility] staff member who reports Pt does not have an advanced directive on file. They have a NOK listed Susy Marte as a girlfriend in [place] [phone] Attempted to call phone number and obtaining an automated message stating "the wirless number is not accepting calls right now". Does not allow an option to leave message.
--- NOTE | 2021-12-25 17:30 | NUR ---
SHIFT SUMMARY PATIENT IS ALERT TO SELF. UNABLE TO ASSESS OVERALL ORIENTATION. ETHICS MEETING IN PLACE TOMORROW TO LOOK INTO A BETTER PLAN OF CARE FOR THE PATIENT. THE PATIENT'S PAIN CONTROL HAS IMPROVED THROUGHOUT THE SHIFT. PATIENT WILL GRUNT AND GRUMBLE FREQUENTLY. PRN SEROQUEL GIVEN X1. PATIENT IS ON CONTINUOUS BIOX. ON 4LPM OF 02. ON TELE RUNNING SINUS TACH. PATIENT HAS A OVIEDO DRAINING YELLOW URINE TO GRAVITY. BED ALARM ON. BED IN LOWEST POSITION. PATIENT HAS NOT TRIED TO GET OUT OF BED WITHOUT HELP. CALL LIGHT WITHIN REACH.
--- NOTE | 2021-12-26 04:01 | NUR ---
SHIFT SUMMARY PT IS EXTREMELY PAINFUL. BEING MEDICATED PER EMAR WITH PAIN MEDICATIONS OFTEN. PT WILL GROAN AND YELL AND BECOME AGITATED, BUT AFTER MEDICATIONS, PT IS CALMER AND ABLE TO SLEEP FOR SEVERAL HOURS AT A TIME. I HAVE NOT BEEN WAKING HIM TO TAKE SCHEDULED DOSES OF PAIN MEDICATIONS HE BECOMES AGITATED AND IT IS DIFFICULT TO CALM HIM. PT IS CONFUSED AND DOES NOT KNOW WHERE HE IS. HE STS HE IS IN [place], [place], OR SOMEWHERE ELSE. CALL LIGHT IS WITHIN REACH BUT PT DOES NOT USE IT. WILL CONTINUE TO MONITOR. PT ON CONTINUOUS BIOX AND 4.5L O2 VIA NC.
--- NOTE | 2021-12-26 05:44 | NUR ---
PT BEGAN WAKING UP AND I ASKED IF HE WANTED MEDICATION. HE SAID YES. I WENT AND GOT MEDICATION AND ASKED IF HE WANTED TO TAKE IT AND HE SAID NO. I WILL TRY AGAIN TO MEDICATE HIS PAIN IN A FEW MINUTES.
[2021-12-26 05:56] LABS: BASOPHILS ABSOLUTE AUTO 0.16 K/mm3 (0.00-0.23); BASOPHILS PERCENT AUTO 1 % (0-2); EOSINOPHILS PERCENT AUTO 0 % (0-6); Hematocrit 42.5 % (37.0-53.0); Hemoglobin 13.6 g/dL (13.5-17.5); IMMATURE GRAN ABSOLUTE AUTO 0.78 K/mm3 (0.00-0.10); IMMATURE GRAN PERCENT AUTO 5 % (0-1); LYMPHOCYTES ABSOLUTE AUTO 1.96 K/mm3 (0.84-5.20); LYMPHOCYTES PERCENT AUTO 11 % (21-46); MONOCYTES ABSOLUTE AUTO 1.54 K/mm3 (0.16-1.47); MONOCYTES PERCENT AUTO 9 % (4-13); Mean Corpuscular HGB 27.1 pg (26.0-34.0); Mean Corpuscular Volume 85 fL (80-100); Mean Platelet Volume 9.6 fL (9.1-12.4); NEUTROPHILS ABSOLUTE AUTO 12.85 K/mm3 (1.96-9.15); NEUTROPHILS PERCENT AUTO 74 % (41-73); Platelet Count 275 K/mm3 (150-400); RDW Coefficient Variation 18.6 % (11.7-14.2); RDW Standard Deviation 56.6 fL (35.1-46.3); Red Blood Cell Count 5.02 M/mm3 (4.30-5.90); White Blood Cell Count 17.29 K/mm3 (4.00-11.30)
--- NOTE | 2021-12-26 06:00 | NUR ---
PT ALLOWED ME TO MEDICATE HIM WITH PAIN MEDICATION.
[2021-12-26 06:18] LABS: Anion Gap 6 mmol/L (6-16); Blood Urea Nitrogen 21 mg/dL (8-24); Bun/Creatinine Ratio 22.2 (12.0-20.0); CO2, Blood 32 mmol/L (21-32); Calcium, Blood 9.6 mg/dL (8.5-10.1); Chloride, Blood 99 mmol/L (98-108); Creatinine, Blood 0.95 mg/dL (0.60-1.20); Glomerular Filtration Rate >60 (60-); Glucose, Blood 120 mg/dL (70-99); Potassium, Blood 4.1 mmol/L (3.5-5.5); Sodium, Blood 137 mmol/L (136-145)
--- NOTE | 2021-12-26 10:17 | NUR ---
Ethics consult order processed. Medical history, prognostic indicators, and clinical case detail reviewed. Conversation facilitated with herman stakeholders. 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 He is additionally afflicted with acute and chronic respiratory failure, COPD, and cardiac arterial disease. The patient is also often combative and resistant to intervention. Despite a good rashawn effort, we were not able to locate an advance care planning instrument, or a viable proxy to offer substitute decision making support. If the patients neurologic capacity is unrestorable, and two providers attest and document that his condition is terminal, and that ongoing aggressive treatment would be disproportionate in nature, and or result in an undue burden of hardship and or suffering, then per ORS 127.635, therapies aimed at recovery may be forgone or withdrawn, and the clinical team may defualt to robust pain management and comfort measures only. Thank you for this consult. Patrick Levin ThD, MANUEL
--- NOTE | 2021-12-26 15:19 | NUR ---
SHIFT SUMMARY PT RESTING QUIETLY AT START OF SHIFT, BUT SOON BECOMING RESTLESS AND AGITATED. PT C/O PAIN AND NEEDING REPOSITIONED. MEDICATED PER EMAR AND REPOSITIONED FOR COMFORT. PT ABLE TO EAT A FEW BITES OF BREAKFAST AND DRINK A GLASS OF WATER. PT LATER WENT TO SLEEP AND HAS BEEN RESTING QUIETLY TO PRESENT. PT NOT AWAKE ENOUGH TO EAT LUNCH OR TAKE NOON PAIN MEDICATION. PT REPOSITIONED OFF BUTTOCKS BUT ALSO ABLE TO REPOSITION SELF IN BED. PT HAS BEEN CALM AND RESTING QUIETLY AT THIS TIME. BED ALARM ON FOR SAFETY. CALL LT IN REACH.
--- NOTE | 2021-12-26 17:14 | NUR ---
PT AT THE BEGINNING OF SHIFT WAS AGIATED AND IN PAIN. PT MEDICATED PER EMAR PROTOCOL. PT SLEPT COMFORTABLE THROUGHOUT SHIFT. PT IS WAITING ON ETHICS CONSULTATION AND PALLITIVE CARE. PT WAS REPOSITIONED Q2HRS AND TOLERATED WELL. PT IS ON CONTINOUS PULSE OXYGEN MONITORING, PT WAS ON 4.5L VIA NC. PT TITRATED DOWN TO 1L VIA NC HOLDING STATS;SEE CHART. PT SLEEPING COMFORATBLEY WITH CALL LIGHT IN REACH.
--- NOTE | 2021-12-27 04:27 | NUR ---
SHIFT SUMMARY ASSUMED CARE OF PT AT 1900. PT IS A/OX1. PT BARKS OUT ORDERS TO STAFF AND WILL HAVE DIFFICULTLY FINDING WORDS. PT WAS PAINFUL IN HIS BACK AT THE START OF SHIFT. ORAL PAIN MEDICATIONS WERE NOT EFFECTIVE AND PT NEEDED THE FULL 2MG OF DILAUDID BEFORE HE FELL BACK ASLEEP. PT THEN SLEPT T/O THE NIGHT, AWAKING TO TAKE HIS PAIN MEDICATIONS AND TO DRINK WATER. LUNG SOUNDS VERY DIMINISHED. HEART SOUNDS REGULAR. PT WAS ON 2L NC, SATURATIONS 95% AND ABOVE. PT EXTREMITES WHERE COOL AND DISCOLORED PURPLE WHILE SITTING ON THE SIDE OF THE BED. SKIN DRY AND FLACKY. LOTION APPLIED.
--- NOTE | 2021-12-27 12:35 | NUR ---
Review of pt chart and notes. No information from [facility] on directives or reliable contacts. Spoke with his friends claudia and hernando burch. He [facility]. Only contact they had from hism was his girlfriend shelley and she has restraining order against him. His freinds are willing to take him home on hospice if [facility] cant help. They state he was not wanting to contact anyone and was keeping information from friends aon his prognosis. They state they knew it was bad by his behaviours. Called to irrigator valve pipe office to be sure no family we should at least advised of his condition. No results yet. pt having some periods of severe pain ethical care for this pt is hospice. commercial title examiner contacted out office and confirmed no living relatives listed per court documents. based on oncology information and pt clinical picture. This is within the state regulations ors.127. It is also in alignment with [facility] directives for compassionate care for the sick and dying. Goal is to support this with palliation of his terminal symptoms and transition to hospice care.
--- NOTE | 2021-12-27 14:34 | NUR ---
SHIFT SUMMARY PT AWAKE AT START OF SHIFT TODAY. MOANING AND GRUNTING, BUT DENIED PAIN FOR A WHILE. PT LATER SITTING UP TO EOB C/O PAIN IN HIS BACK. ANS YES TO NEEDING PAIN MEDICATION. PT MEDICATED PER EMAR, BUT DID NOT SEEM TO BE EFFECTIVE TODAY. ADDITIONAL PAIN MEDICATION GIVEN. O/T IN TO EVALUATE PT AND GET HIM TO CHAIR AT BS USING GB AND FWW WITH 2P ASSIST. PT BECOMING VERY AGITATED WHILE IN CHAIR, TEARING OFF LINES AND O2 TUBING. PT REFUSING CONT BIOX WELL. DR COBB UPDATED ON AGITATION; NEW ORDERS PLACED. PALLIATIVE CARE NURSE TO RM TO CK ON PT AND CLARIFY ETHICS CONSULT DECISION. COMFORT CARE ORDERS PLACED. PT'S FRIENDS NOTIFIED AND UPDATED ON PT STATUS. FRIENDS HAD REQUESTED TO TAKE PT HOME ON HOSPICE WHEN NEEDED. PT CURRENTLY RESTING QUIETLY. BED ALARM ON FOR SAFETY. CALL LT IN REACH.
--- NOTE | 2021-12-27 18:53 | NUR ---
asee ethic note. pt placed on comfort care and review of case with care managers. Reivew with nursing strategies for his pain and anexiety. Will continue to monitor.
--- NOTE | 2021-12-27 19:09 | NUR ---
PT WAS AGIATED AND WANTING TO GET OUT OF BED. PT WAS POSITON ON THE SIDE OF THE BED. PT WAS PUT ON COMFORT CARE. PT WAS MEDICATED PER EMAR PROTOCOL. PT WAS EVALUATED BY PT AND TRANSFERED OUT OF BED TO CHAIR, CHAIR TO BED. PT HAS BEEN RESTING THROUGHOUT SHIFT WAKING TO EAT BREAKFAST AND DINNER. PT WAS ON 2L NC, PATIENT WAS AGIATED WITH NC AND KEPT PULLING IT OFF. NC REMOVED FOR PATIENT COMFORT.PT RESTING COMFORTABLE IN BED WITH CALL LIGHT IN REACH.
--- NOTE | 2021-12-28 05:08 | NUR ---
SHIFT SUMMARY PATIENT RESTED ON AND OFF THROGHOUT THE NIGHT, DENIES PAIN HOWEVER HAS GRIMACE, PRN PAIN MEDICATION AND ATIVAN ADMINISTERED, PATIENT CONTINUES TO BE CONFUSED AND HAVE HALLUCINATIONS, OVIEDO CATHETER PUTTING OUT YELLOW URINE, NEW IV PLACED FOR MEDICATION ADMINISTATION, REPOSITIONING SELF IN BED, PERSONAL CARES COMPLETED Q2 HOURS, PATIENT ABLE TO DRINK THIN LIQUIDS WITH NO COMPLICATIONS
--- NOTE | 2021-12-28 11:55 | NUR ---
Comfort Care Visit Pt resting in bed with his eyes closed. Pt briefly opens his eyes to gentl verbal stimuli then quickly closes them. No S/S of distress at this time. Spoke with Primary RN Aminata and discussed case. No concerns reported at this time. Palliative Care will remain available.
--- NOTE | 2021-12-28 17:38 | NUR ---
SHIFT SUMMARY PT HAS BEEN RESTING IN BED ALL DAY QUIET AND SLEEPING. HE DID REQUIRE SOME ATIVAN TODAY HE BECAME RESTLESS AND WAS UNABLW TO GET COMFORTABLE IN BED. PT IS STILL WAITING FOR PLACEMENT. WILL CONTINUE TO MONITOR.
--- NOTE | 2021-12-29 04:07 | NUR ---
SHIFT SUMMARY PT IS A 66 Y/O MALE, ADMITTED FOR INTRACTABLE BACK PAIN AND CURRENTLY ON COMFORT CARE. HE IS A&O X SELF, BEDREST. OVIEDO IN PLACE, PATENT AND DRAINING. HE WAS MEDICATED FOR ANXIETY AND GENERAL RESTLESNESS WITH PRN ATIVAN. NO S/S OF ACUTE DISTRESS. NO OTHER ACUTE CHANGES IN PT CONDITION NOTED DURING THE NIGHT. WILL CONTINUE TO MONITOR AND TREAT PER EMAR UNTIL HAND OFF TO DAY SHIFT RN.
--- NOTE | 2021-12-29 10:49 | NUR ---
Comfort Care Visit Pt resting in bed with eyes closed. Pt opens his eyes to gentle verbal stimuli but does not interact or respond verbally. Pt appears anxious and painful as evidenced by constant movement of his upper extremities, twitching, and voicefull grunts. Pt appears to be experiencing some terminal restlessness. Mottling noted on bilateral lower extremities. Spoke with Primary RN Aminata and reviewed comfort medications. Pt appears to be transitioning. Palliative Care will remain available.
[2021-12-29 13:33] LABS: Influenza A, PCR NEGATIVE (NEGATIVE); Influenza B, PCR NEGATIVE (NEGATIVE); Resp Syncytial Virus, PCR NEGATIVE (NEGATIVE); SARS-Cov-2 (COVID-19) PCR, MMC NEGATIVE (NEGATIVE)
--- NOTE | 2021-12-29 15:10 | NUR ---
Received notification from [facility] card game operator (Cecilio Nolen) that patient is hospice appropriate. However, due to staffing issues our agency will be unable to admit patient post discharge. Notified nurse ambulatory care coordinator (Jessica Nascimento) of the above via [employer] message at [phone] on 12/29/2021. No further interventions required. Bertha Forbes Referral Liaison
--- NOTE | 2021-12-29 18:39 | NUR ---
SHIFT SUMMARY NO ACUTE CHANGES. PT RECIEVED ATIVAN AND ROXANOL SEVERAL TIMES TODAY FOR PAIN AND AGITATION. HE HAS BEEN CRYING OUT SEVERAL TIMES TODAY. HE HAS BECOME MUCH LESS RESPONSIVE AND SEEMS TO HAVE TRANSITIONED SOMETIME EARLY THIS AFTERNOON. HE IS BEGINNING MOTTLING ON HIS LOWER BODY AN ONYL RESPONDS TO HIS NAME NOW. PLAN IS TO DISCHARGE TOMORROW ON HOSPICE TO [facility] ONCE PAPERWORK IS FIGURED OUT. WILL CONTINUE TO MONITOR.
--- NOTE | 2021-12-29 23:13 | NUR ---
PATIENT IS LYING IN BED, RESTLESS AT TIMES. PT IN MINIMALLY REACTIVE TO STAFF, HE DOES SAY RANDOM OFF THE WALL THINGS. PSYCHIATRIC NURSE PRACTITIONER HAS BEEN DOING ORAL CARE AND TURNS. PT HAS A OVIEDO WITH DK YELLOW URINE. BED ALARM ON.
--- NOTE | 2021-12-30 05:09 | NUR ---
12/30/21 0430 Patient has been yelling and having increased agitation. Pillow removed from behind patients back and pt was medicated with roxanol 20mg at 0322 and ativan 2 mg at 0416. Pt is more relaxed. Still talks unable to understand patient.
--- NOTE | 2021-12-30 07:17 | NUR ---
Rn summary: Patient is confused, he talks but is not understandable. He seems to be having hallucinations at times. Pt medicated with ativan 2mg x2 and roxanol 20mg x2. He really became aggitatd about 0300. neither med seemed to help. Pt rested onc flat on his back. Still talks but is not yelling. Pt unable to take oral intake. Fights the mouth swabs. Moisturizer to lips. Mixon is patent with moderate urine output. Plan is for DC to hospice today.
--- NOTE | 2021-12-30 07:47 | NUR ---
PT WAS REPOSITIONED THIS MORNING HE WAS HAVING BACK PAIN AND DISCOMFORT. HE SEEMS UNABLE TO GET COMFORTABLE.
--- NOTE | 2021-12-30 13:31 | NUR ---
Comfort Care Visit Pt resting in bed and appears mildly anxious as evidenced by attempts to reposition. Briefly opens his eyes and quickly closes them. Mottling noted on bilateral knees. Spoke with Primary RN Aminata and discussed case. Pt requiring more comfort medications today. Spoke with Dr Schmidt and discussed case. Placed order for Haldol 1-2mg PO Q 6 PRN per V/O from Dr Schmidt. Palliative Care will remain available.
--- NOTE | 2021-12-30 18:10 | NUR ---
SHIFT SUMMARY NO ACUTE CHANGES THIS SHIFT. PT WILL BE HERE OVER THE WEEKEND UNTIL [place] OR PLACEMENT ON SUNDAY. ORAL HALOPERIDOL WAS ORDERED AND HELPED THE PT IMMENSELY WITH GETTING REST. HIS IS STILL SLIGHTLY RESTLESS BUT SEEMS TO BE IN SIGNIFICANTLY LESS PAIN AND HAS ACTUALLY SLEP FOR PERIODS OF TIME.
--- NOTE | 2021-12-30 22:02 | NUR ---
Patient is showing signs of pain, especially when attempting repositioning. At the last turn, I did not do a full reposition, as It seemed like it was causing discomfort. I adjusted his head pillow and fluffed it, fluffed his leg pillow, and added another, and changed the positioning of his bed to compensate some for the lack of turning to one side or another. Next turn, I will re attempt a full turn, but I feel that this type of positioning may occur a few times tonight, as it did last night as well.
--- NOTE | 2021-12-31 05:49 | NUR ---
SHIFT SUMMARY PATIENT ON COMFORT CARE. ALERT TO SELF AND BEDREST. ROXANOL 20 MG GIVEN PER EMAR FOR PAIN. ATIVAN 2 MG SL GIVEN FOR ANXIETY X ONE. ORAL HALDOL GIVEN FOR AGITATION X ONE. NON-VERBAL. NO IV ACCESS. ON ROOM AIR. NO FAMILY PRESENT. CALL LIGHT IN REACH. BED IN LOWEST POSITION. WILL CONTINUE TO MONITOR UNTIL DAY SHIFT NURSE ASSUMES CARE.
--- NOTE | 2021-12-31 10:16 | NUR ---
PT MOANING. UNABLE TO CHECK A/O. PT DOES NOT SPEAK, JUST MOANS. H/R REGULAR. LUNG SOUNDS CLEAR BREATHING IS EASY AND UNLABORED. PT HAS OVIEDO CATHETER PLACED DRAINGING TO GRAVITY. SEDIMENT IS PRESENT AND DARK YELLOW IN COLOR. PT HAS MOTTELING FROM ABDOMEN DOWN. BED IN LOW POSITION, BED ALARM ON AND MONITORING FREQUENTLY.
--- NOTE | 2021-12-31 10:27 | NUR ---
Pt having severe terminal aggitation. pt mottled abdomen distended pt showing signs of Gi distress and tumor burden. contacted physician to increase medications and add some nausea medications. theraputic time with pt he is exressing anger.
--- NOTE | 2021-12-31 10:49 | NUR ---
PT CALLING OUT, MOANING. PUSHING ON BED IF TO COMPENSATE FOR BACK PAIN. MED FOR PAIN. SOME PAUSING IN RESP FOR 5 - 8 SECONDS THEN RESUMES. HAS BEEN CALLING AND MOANING ALL MORNING. OBTAINED DR TO INCREASE DOSING. ATTEMPTING TO MAKE MORE COMFORTABLE.
--- NOTE | 2021-12-31 10:55 | NUR ---
PT NOT MOANING MUCH. RESP ABOUT 16, PAUSES FOR FEW SECONDS THEN RESUMES.
--- NOTE | 2021-12-31 10:59 | NUR ---
PT HAS BEEN MOANING AND CALLING OUT NEARLY CONTINUOUSLY THIS AM. WE DISCUSSED WITH DR, AND ARE INCREASING PAIN MEDS COVERAGE. PT HAS RESP AROUND 16-20 WITH PERIODS OF APNIA ABOUT 5-8 SECONDS. CONTINUES TO MOAN AND CALL OUT. INCREASED DOSING APPEARS TO BE HELPING SOME. INCREASED MOTTLING NOTED IN LEGS AND ABD SINCE AM. BED IN LOW POSITIOIN, CALL LITE IN REACH, BED ALARM ON FOR SAFETY
--- NOTE | 2021-12-31 11:06 | NUR ---
pt symptoms improving may need to increase medications. Will continue to monitor closely. Will visit and give theraputic support.
--- NOTE | 2021-12-31 11:40 | NUR ---
PT RESTING, QUIET, NOT MOANING. RESP EASY, UNLABORED.
--- NOTE | 2021-12-31 13:14 | NUR ---
PT RESTING IN BED. NOT MOANING AT THIS TIME. WILL CONTINUE TO MONITOR.
--- NOTE | 2021-12-31 13:26 | NUR ---
PT RESTING, EYES CLOSED, RESP EASY, UNLABORED.
--- NOTE | 2021-12-31 15:06 | NUR ---
pt resting less aggitation no grimace will continue to monitor closely.
--- NOTE | 2021-12-31 15:32 | NUR ---
PT MOANING, OPENING EYES. STIRRING IN BED. MEDICATED WITH ROXANOL PER EMAR. WILL CONTINUE TO MONITOR.
--- NOTE | 2021-12-31 16:36 | NUR ---
PT MOANING AND STIURRING IN BED. PT MEDICATED PER MEAR WITH ATIVAN. WILL CONTINUE TO MONITOR.
--- NOTE | 2021-12-31 17:39 | NUR ---
PT RECENTLY MEDICATED FOR ANX. HAS BEEN BREATHING RELAXED AND QUIET AGAIN.
--- NOTE | 2021-12-31 18:16 | NUR ---
PT CALM AND RESTING. PT HAS BEEN MOANING TODAY, MEDICATER PER EMAR. H/R IN 90'S. RR IS 18, HAS PERIODS OF APNIC BREATHING. . PT HAS A OVIEDO THAT IS DRAINING TO GRAVITY. DARK YELLOW URINE AND SEDIMENT IN OVIEDO CATH BAG. MOTTLING PRESENT ON LEGS AND ABDOMEN. MEDICATED WITH ATIVAN AND ROXANOL TO MANAGE ANXIETY AND PAIN. BED IN LOW POSITION, MONITORS FREQUENTLY.
--- NOTE | 2021-12-31 18:49 | NUR ---
AGREE WITH STUDENT NOTES. PT RESTING AT THIS TIME. QUIET. BED IN LOW POSITION, CALL LITE IN REACH, BED ALARM ON FOR SAFETY
--- NOTE | 2022-01-01 04:31 | NUR ---
SHIFT SUMMARY PATIENT ON COMFORT CARE. MANAGING PAIN AND ANXIETY WITH ROXANOL AND SL ATIVAN. ORAL HALDOL GIVEN FOR AGITATION. OVIEDO PATENT AND DRAINING TO GRAVITY. NON-VERBAL AND BEDREST. ON ROOM AIR. RESTING IN BED T/O SHIFT.
--- NOTE | 2022-01-01 07:30 | NUR ---
PT RESTING IN BED, NOT MOVING. BREATHING ABOUT 5 TIMES IN 15 SECONDS, THEN PAUSES FOR 15-20 SECONDS. HAS BEEN QUIET THISMORNING. BED IN LOW POSITION, CALL LITE IN REACH, BED ALARM ON FOR SAFEY
--- NOTE | 2022-01-01 07:50 | NUR ---
PT RESTING IN BED. DOES NOT APPEAR TO BE IN DISTRESS. RR ARE AT 17/MIN. PERIODS OF APNIC BREATHING. MOTTLING PRESENT ON LOWER EXTREMITIES AND ABDOMEN. OVIEDO CATHETER PRESENT DRAINING TO GRAVITY. YELLOW IN COLOR WITH SEDIMENT PRESENT. PT NON-VERBAL, NOR MOANING AT THIS TIME. BED IN LOW POSITION WILL CONTINUE TO MONITOR.
--- NOTE | 2022-01-01 10:07 | NUR ---
PT MOANING AND STIRRING IN BED. MEDICATING PT PER EMAR. WILL CONTINUE TO MONITOR.
--- NOTE | 2022-01-01 10:20 | NUR ---
PT RESTING, MAKING NO NOISES. PRESENTS PEACEFUL. H/R 120. RESP ARE 5 FOR 15 SECONDS, THEN PAUSES FOR 15-20 SECONDS.
--- NOTE | 2022-01-01 13:03 | NUR ---
PT MOANING, GRIMACING AND STIRRING IN BED. PT MEDICATED PER EMAR. BED BATH GIVEN WITH LINEN CHANGE. WILL CONTINUE TO MONITOR.
--- NOTE | 2022-01-01 14:21 | NUR ---
PT HAD VOLUNTEERS TO ROOM. THEY WERE TALKING TO HIM. SOME OCC MOANING. ASSESS PT. OPENS EYES THEN SLOWLY CLOSES. DOES NOT APPEAR TO FOCUS. HE SPOKE TO SIT UP. DID SO . MED FOR PAIN PER EMAR. HE IS RESTING WHILE SITTING CLOSE TO UPRIGHT IN BED. EYES CLOSED, OCC MOAN. WILL MONITOR HOW PAIN MED RESOLVES. BED IN LOW POSITION, CALL LITE IN REACH, BED ALARM ON FOR SAFETY
--- NOTE | 2022-01-01 15:11 | NUR ---
PT MEDICATED PER EMAR. PT MOANING. WILL CONTINUE TO MONITOR.
--- NOTE | 2022-01-01 16:25 | NUR ---
PT RESTING COMFORTABLY. QUIET. ARMS AT SIDE. MOUTH OPEN SLIGHTLY, RESP UNEVEN. DID NOT AWAKEN.
--- NOTE | 2022-01-01 16:25 | NUR ---
PT RESTING IN BED. APPEARS TO BE IN NO DISTRESS. NO MOANING OR MOVING. PT RESPIRATIONS AT 16 A MINUTE. PERIODS OF APNEA. WILL CONTINUE TO MONITOR.
--- NOTE | 2022-01-01 17:09 | NUR ---
PT MOANING AND RESTLESS SOME OF SHIFT. PT HAS BEEN MEDICATED PER EMAR. PT IS SLEEPING AND RESTING RIGHT NOW. NO MOANING OR STIRRING AT THIS MOMENT. PT HAS A OVIEDO CATHETER DRAINING TO GRAVITY. BEDBATH WAS GIVVEN TODAY WITH A LINEN CHANGE. WILL CONTINUE TO MONITOR PT.
--- NOTE | 2022-01-01 17:28 | NUR ---
AGREE WITH STUDENT NOTES.
--- NOTE | 2022-01-01 18:30 | NUR ---
PT RESTING IN BED AT THIS TIME. NO MOANING OR STIRRING. PT WAS REPOSITIONED. RR AT 16 WITH PERIODS OF APNEA 15-20 SECONDS. EYES ROLLED BACK AND PT IN RELAXED POSITION. BED IN LOW POSITION. WILL CONTINUE TO MONITOR.
--- NOTE | 2022-01-01 18:31 | NUR ---
PT RESTING AT THIS TIME NOT MUCH CHANGE TODAY. PRESENTLY EYES CLOSED. IRREGULAR BREATHING. CONTINUES TO PAUSE FOR 15 + - SECONDS. PT IS QUIET AT THIS TIME. BED IN LOW POSITION, CALL LITE IN REACH, BED ALARM ONFOR SAFETY
--- NOTE | 2022-01-02 04:49 | NUR ---
SHIFT SUMMARY PT DROWSY, AWAKES BRIEFLY TO STIMULI, MOANING OUT WITH MOVEMENT AND OCCASIONALLY WHILE RESTING, MED PER MAR FOR PAIN AND ANXIETY. PT REPOSTIONED FOR COMFORT AND TO PREVENT SKIN BREAKDOWN, OVIEDO PATENT WITH PEGGY URINE NOTED. ORAL CARE DONE PRN, LUNGS DIMINISHED, RESPIRATIONS SHALLOW, IRREGULAR, APNEIC AT TIMES. CONTINUE COMFORT MEASURES AT THIS TIME.
--- NOTE | 2022-01-02 07:51 | NUR ---
PT REPOSITIONED AT THIS TIME, PILLOW PLACED UNDER R HIP. SMALL MOANS PRESENT WHILE SLEEPING. PT HAS 10-15 SECOND PERIODS OF APNEA, AND IS SNORING WHILE ASLEEP.
--- NOTE | 2022-01-02 08:21 | NUR ---
Comfort Care Visit Pt resting in bed with his eyes closed. Periods of apnea noted. Pt appears comfortable. Spoke with Primary RN Ezequiel and discussed case. Palliative Care will remain available.
--- NOTE | 2022-01-02 10:29 | NUR ---
REPOSITIONED TO RIGHT SIDE. PILLOW PLACED UNDER LEFT SIDE. PT MOANING WHILE ASLEEP. MEDICATED PER EMAR. CONTINUES TO HAVE PERIODS OF APNEA LASTING 10-15 SECONDS.
--- NOTE | 2022-01-02 13:53 | NUR ---
REPOSITIONED AT THIS TIME. PT SHIFTED TO LEFT SIDE. PILLOW UNDER RIGHT. MEDICATED PER EMAR, FOR MOANING AND GRIMACE ON FACE. SLIGHT INCREASE IN MOTTLING NOTED TO BILATERAL KNEES. NO CHANGES IN RESPIRATORY EFFORT. MINIMAL SECRETIONS NOTED.
--- NOTE | 2022-01-02 17:09 | NUR ---
PT REPOSITIONED AT 1600. TOLERATED WELL. NO MOANS AFTER REPOSITIONING. OVIEDO REMAINS PATENT, MINIMAL OUTPUT TODAY.
--- NOTE | 2022-01-02 17:51 | NUR ---
REPOSITIONED TO RIGHT SIDE, PILLOW PLACED UNDER LEFT HIP. MOANING AND GRIMACING PRIOR TO MEDICATION AND REPOSITION, APPEARS MORE COMFORTABLE AT THIS TIME.
--- NOTE | 2022-01-03 04:37 | NUR ---
SHIFT SUMMARY 66 YR M ON COMFORT CARE. DNR. PT WAS MOSTLY NON RESPONSIVE THIS SHIFT. HE WOULD OPEN HIS EYES BUT HE WOULD NOT LOOK AT ME WHEN STIMULATED. MEDICATED ONCE THIS SHIFT W/ ROXINOL PER EMAR AFTER PT APPEARED AGITATED OR IN PAIN. COMFORT CARE MEASURES CONTINUED AND COMFIRT CARE ASSESSMENTS COMPLETED.
--- NOTE | 2022-01-03 10:58 | NUR ---
Comfort Care Visit Pt in bed screaming as Primary RN offering phenagrin supp. Pt appears more calm after care was provided. Reviewed comfort medications with Primary RN Beba. Mottling noted on BLLE and upper extemities and trunk. Offered gentle voice for Pt. Palliative Care will remain available.
--- NOTE | 2022-01-03 18:19 | NUR ---
SHIFT SUMMARY COMFORT CARE MEASURES IN PLACE. PT UNRESPONSIVE/NONVERBAL, MOANS IN RESPONSE TO PAIN AND REPOSIITONING. OVIEDO PATENT AND DRAINING DARK ORANGE URINE. BED IN LOWEST POSITION WITH CALL LIGHT IN REACH. WILL CONTINUE TO MONITOR AND REPORT TO ONCOMING RN.
--- NOTE | 2022-01-03 20:01 | NUR ---
REPOSITIONED TO RIGHT SIDE. HOB ELEVATED. OVIEDO DRAINING. NO NOTED ACUTE PHYSICAL DISTRESS. CALL LIGHT NEXT TO ARM
--- NOTE | 2022-01-03 23:04 | NUR ---
PREVIOUS FENTANYL PATCH BEHIND LEFT SHOULDER REMOVED, NEW PATCH PLACED BEHIND RIGHT SHOULDER. APPEARS TO BE WORKING. PT RESTING QITHOUT APPARENT ACUTE S/S PAIN. WILL CONTINUE TO MONITOR
--- NOTE | 2022-01-04 01:44 | NUR ---
RESTING QUIETLY. CONTINUE TO REPOSITION FOR COMFORT - SEE DOCUMENTATION
--- NOTE | 2022-01-04 01:45 | NUR ---
OCCASIONAL IRREGULAR RESPS, NO NOTED SIGNS OF ACUTE PAIN
--- NOTE | 2022-01-04 03:12 | NUR ---
APPLIANCE REPAIRER SUMMARY PT REMAINS ON COMFORT CARE. REPOSITIONED OFTEN FOR COMFORT. NOTE OCCASIONAL INTERRUPTIONS IN GREATHS, NO NOTED S/S ACUTE PAIN. OVIEDO DRAINING. CALL LIGHT NEAR ARM.
--- NOTE | 2022-01-04 07:06 | NUR ---
EXPIRATION NOTE AT 0645 PT WAS NOTED TO HAVE STOPPED BREATHING. 2 RNS (TOYA Ochoa AND ROMÁN ROJO) CHECKED FOR BREATHING - NO BREATHS PER AUSCULTATION. CHECKED HR - BOTH CAROTID, AUSCULTATION AND RADIAL - NO HR NOTED. CALL PLACED TO DR SAMANTHA MD CALLED BACK AND ACKNOWLEDGED AND ACCEPTED 2 RNS CALLING . CALL PLACED TO SIGNIFICANT OTHERS. MESSAGE LEFT FOR THEM TO CALL BACK FOR INFORMATION RE PT. AM CHARGE NURSE TO FOLLOW THROUGH WITH THAT FOR HOME INFO, ETC
--- NOTE | 2022-01-04 12:15 | NUR ---
TRANSPORT TOOK BODY [place] [facility] [place] [facility] [facility]IA [facility]. NO FRIENDS RETURNED CALLS ABOUT PT'S EXPIRING. WILL TRY AGAIN TO REACH FRIENDS REGUARDING PT PASSING, NO KNOWN FAMILY.
== END 2022-01-04 06:45 | DRG 551 ==
LOC: ER 05:08 → MEDS 13:29 → PCU 13:29 → MEDS 12-25 09:01 → ENPENDDIS 12-28 16:52 → MEDS 01-04 06:45
PROVIDERS: Student in an Organized Health Care Education/Training Program; ADMIT Internal Medicine
DX: S32.018A Other fracture of first lumbar vertebra, initial encounter for closed fracture (principal); J96.01 Acute respiratory failure with hypoxia; G92.9 Unspecified toxic encephalopathy; C34.90 Malignant neoplasm of unspecified part of unspecified bronchus or lung; C79.31 Secondary malignant neoplasm of brain; S32.028A Other fracture of second lumbar vertebra, initial encounter for closed fracture; M54.9 Dorsalgia, unspecified; Z20.822 Contact with and (suspected) exposure to COVID-19; G89.29 Other chronic pain; Z51.5 Encounter for palliative care; I25.10 Atherosclerotic heart disease of native coronary artery without angina pectoris; R45.1 Restlessness and agitation; F17.200 Nicotine dependence, unspecified, uncomplicated; E78.5 Hyperlipidemia, unspecified; I10 Essential (primary) hypertension; E78.00 Pure hypercholesterolemia, unspecified; Z92.21 Personal history of antineoplastic chemotherapy; I25.2 Old myocardial infarction; Z95.5 Presence of coronary angioplasty implant and graft; Z98.890 Other specified postprocedural states; Z91.81 History of falling; Z79.82 Long term (current) use of aspirin; Z79.899 Other long term (current) drug therapy; W18.39XA Other fall on same level, initial encounter
CPT/HCPCS: 0241U; 36415; 72100; 80048; 80053; 85025; 87040; 94760; 94762; 96374; 96375; 96376; 97166; 97530; 99285-25; A9270; J1170; J1630; J1650; J1885; J2060; J2270; J3010